=== PATIENT | female | born 2000 | race Caucasian/White ===

== ENCOUNTER → 2021-05-22 | Outpatient (CLI) | payer OTHER ==
--- NOTE | 2021-05-25 16:40 | SLEEPCENT ---
DATE: 05/22/2021 ORDERED BY: Jeffy Workman Nocturnal polysomnography was performed for evaluation of sleep physiology in this patient with a history of snoring and excessive daytime somnolence. There was 7 hours and 54 minutes of data reviewed. There was 415 minutes of sleep identified. Sleep latency was short at 7 minutes. REM sleep was delayed at 183 minutes. Sleep architecture was fair. There were three REM cycles noted. Overall sleep efficiency was 89.2%. REM time was diminished. The EKG showed a sinus rhythm with an average heart rate of 70 beats per minute. Rate ranged 50-90. EEG showed essentially normal waveforms for wake and sleep. There was some mild alpha intrusion in non-REM stages. There were only two obstructive respiratory events identified of 10 seconds in duration or greater for an apnea-hypopnea index within normal limits at 0.3. There was no significant activity in the limb leads. Snoring was noted over much of the test. IMPRESSION: Normal nocturnal polysomnography with snoring.
== END ==
LOC: M SLEEP 20:00
PROVIDERS: ATTEND Physician Assistant
DX: R06.83 Snoring (principal)

== ENCOUNTER → 2021-06-07 | Outpatient (REF) ==
--- NOTE | 2021-06-07 15:12 | REP ---
INDICATION: SOB. COMPARISON: None. No priors are identified in the power jacket. TECHNIQUE: PA and lateral FINDINGS: The superior mediastinal structures are midline. The cardiac silhouette is unremarkable in size, shape, and position. The diaphragmatic surfaces of the lungs are regular, and the costophrenic angles are clear. The pulmonary jay are clear. The imaged osseous structures are intact. IMPRESSION: There is no acute cardiopulmonary disease. <Electronically signed by Yohannes Bang > 06/07/21 [id number]
== END ==
LOC: M PLAIMG 12:54
PROVIDERS: ATTEND Internal Medicine
DX: R06.02 Shortness of breath (principal)

== ENCOUNTER → 2021-06-10 | Outpatient (CLI) | payer OTHER ==
[~2021-06-10] MED LIST: METHACHOLINE KIT (J7674) INH ONE
--- NOTE | 2021-06-10 09:04 | PFTRPT ---
Height: 63.50 Inches Weight: 160.00 Lbs BSA: 1.77 Diagnosis: R06.00 DATE: 06/10/2021 ORDERED BY: Cezar Workman QUALITY: Study of excellent technical quality. PROCEDURE: Under protocol, methacholine was administered. A dose of 2.5 mg or 13.875 CDUs, a 30% decline in the FEV1 was noted. PC of 0.49 is significant. Flow rates did return to baseline post bronchodilator administration. IMPRESSION: Positive methacholine challenge study. MTDD
== END ==
LOC: M CARPUL 08:19
PROVIDERS: ATTEND Physician Assistant
DX: R06.00 Dyspnea, unspecified (principal)
CPT/HCPCS: 94070; J7674